=== PATIENT | female | born 1945 | race Caucasian/White ===

== ENCOUNTER → 2016-12-23 | Outpatient (CLI) | payer MEDICARE ==
--- NOTE | 2016-12-24 08:33 | US ---
EXAM DESCRIPTION: Renal ultrasound. CLINICAL HISTORY: Possible renal mass seen on previous exam. COMPARISON: September 22, 2013 TECHNIQUE: Real-time imaging was performed by an industrial engineering technologist. International Coordinator static images have been submitted for review. FINDINGS: The right kidney measures 10.3 cm in diameter in the left measures 10.6. Multiple hypoechoic cysts noted within bilateral kidneys. The largest is seen within the lower pole of right kidney measures 2.7 x 2.7 x 2.3 cm. This cyst has demonstrated slight increase in size. On the prior study measured 2.5 x 2.7 x 1.8 cm. No evidence of obstruction. No definitive evidence of a mass. No renal stones noted. IMPRESSION: Bilateral renal cysts. No solid-appearing renal mass on today's study. Electronically signed by: Jeramie Vazquez MD 12/24/2016 08:31
== END | disposition home or self-care (01) ==
LOC: US 15:10
PROVIDERS: ATTEND Urology
DX: D41.12 Neoplasm of uncertain behavior of left renal pelvis (principal)

== ENCOUNTER → 2017-01-06 | Outpatient (CLI) | payer MEDICARE | LOC: LAB.O 09:34 | PROVIDERS: ATTEND Family Medicine | DX: E11.9 Type 2 diabetes mellitus without complications (principal); I10 Essential (primary) hypertension; E78.00 Pure hypercholesterolemia, unspecified ==

== ENCOUNTER → 2017-04-30 | Outpatient (CLI) | payer MEDICARE | END | disposition home or self-care (01) | LOC: LAB 07:53 | PROVIDERS: ATTEND Family Medicine | DX: E11.9 Type 2 diabetes mellitus without complications (principal); I10 Essential (primary) hypertension ==

== ENCOUNTER → 2017-08-02 | Outpatient (CLI) | payer MEDICARE | END | disposition home or self-care (01) | LOC: LAB.O 07-30 08:14 | PROVIDERS: ATTEND Family Medicine | DX: E11.9 Type 2 diabetes mellitus without complications (principal) ==

== ENCOUNTER → 2017-10-27 | Outpatient (CLI) | payer MEDICARE | END | disposition home or self-care (01) | LOC: LAB.O 09:46 | PROVIDERS: ATTEND Family Medicine | DX: E11.8 Type 2 diabetes mellitus with unspecified complications (principal); I25.10 Atherosclerotic heart disease of native coronary artery without angina pectoris ==

== ENCOUNTER → 2018-04-04 | Outpatient (CLI) | payer MEDICARE | LOC: LAB.O 09:34 | PROVIDERS: ATTEND Family Medicine | DX: I10 Essential (primary) hypertension (principal); E11.8 Type 2 diabetes mellitus with unspecified complications ==

== ENCOUNTER → 2018-08-19 | Outpatient (CLI) | payer MEDICARE | LOC: LAB.O 09:11 | PROVIDERS: ATTEND Family Medicine | DX: Z00.00 Encounter for general adult medical examination without abnormal findings (principal); E11.9 Type 2 diabetes mellitus without complications; I10 Essential (primary) hypertension ==

== ENCOUNTER 2019-03-18 17:21 | Emergency (ER) | payer MEDICARE ==
--- NOTE | 2019-03-18 17:43 | ED.PDOC ---
History of Present Illness - General Chief Complaint: Upper Extremity Injury Stated Complaint: fell, hurt lt wrist Time Seen by Provider: 03/18/19 17:39 Source: patient Exam Limitations: no limitations - History of Present Illness Initial Comments: Danae Barrera 73y/o female came to ER with sharp pain left wrist after a fall at home.Stated both foot got tangled lost her balance on her way to her bathroom.Denies any other injuries elsewhere. Occurred: this morning Pain - Upper Extremity: moderate: Wrist, left Method of Injury: fell Improving Factors: rest Worsening Factors: movement Associated Symptoms: pain Allergies/Adverse Reactions: Allergies NO KNOWN ALLERGY Allergy (Unverified 12/29/13 10:35) Home Medications: Ambulatory Orders ALPRAZolam [Xanax] 0.5 mg PO DAILY 09/02/14 Bisoprolol & Hydrochlorothiazi [Ziac] 1 tab PO DAILY 09/02/14 Clopidogrel Bisulfate [Plavix] 75 mg PO DAILY 09/02/14 Codeine Sulfate 60 mg PO Q6HRS PRN #14 tab 09/02/14 Escitalopram [Lexapro] 10 mg PO DAILY 09/02/14 Fenofibrate 145 mg PO DAILY 09/02/14 Glimepiride [Amaryl] 2 mg PO DAILY 09/02/14 Lisinopril 20 mg PO DAILY 09/02/14 Metformin HCl [Glucophage] 1,000 mg PO BID 09/02/14 Nifedipine [Adalat cc] 60 mg PO DAILY 09/02/14 Tramadol HCl [Ultram] 50 mg PO DAILY 09/02/14 Acetamin W/Cod #3 Tab [Tylenol w/CODEINE #3] 1 ea PO Q4HR PRN #14 tab 03/18/19 Review of Systems - Review of Systems Musculoskeletal: States: see HPI, joint pain - left wrist All other Systems: Reviewed and Negative, No Change from Baseline Past Medical History (General) - Patient Medical History Hx Seizures: No Hx Stroke: No Hx Dementia: No Hx Asthma: No Hx of COPD: No Hx Cardiac Disorders: Yes Hx Congestive Heart Failure: Yes - has stent Hx Pacemaker: No Hx Hypertension: Yes Hx Thyroid Disease: No Hx Diabetes: Yes Hx Gastroesophageal Reflux: No Hx Renal Disease: No Hx Cancer: No Hx of HIV: No Hx Hepatitis C: No Hx MRSA: No Surgical History: other - hysterectomy,cataract,knee,wrist right,c-sections - Social History Hx Tobacco Use: Yes Hx Chewing Tobacco Use: No Hx Alcohol Use: No Hx Substance Use: No Hx Substance Use Treatment: No Hx Depression: No Family Medical History - Family History Mother Living Status: Age at (years of age): 74 Cause of : CHF Hx Family Congestive Heart Failure: Yes Hx Family Hypertension: Yes Hx Cardiac Disease: Yes Hx Family Diabetes: Yes Physical Exam - Physical Exam General Appearance: Alert, Comfortable, No apparent distress Eyes, Ears, Nose, Throat Exam: normal ENT inspection Neck: non-tender, full range of motion, supple, normal inspection Cardiovascular/Respiratory: regular rate, rhythm, no M/R/G, normal peripheral pulses Abdominal Exam: non-tender Back Exam: no CVA tenderness, no vertebral tenderness Shoulder Exam: normal inspection, non-tender, no evidence of injury, normal ROM Elbow/Forearm Exam: normal inspection, non-tender, no evidence of injury, normal ROM Wrist Exam: bone tenderness - left wrist, limited ROM - painful extension/flexion, pain - left wrist, soft tissue tenderness - left wrisr Hand Exam: normal inspection, non-tender, no evidence of injury Neuro/Tendon: normal sensation, normal motor functions, normal tendon functions Mental Status: alert, oriented x 3 Skin Exam: normal color, warm/dry Progress - Progress Progress: 03/18/19 17:47 03/18/19 17:39 Wrist,Left 3 Views [RAD] Stat Vital Signs - 8 hr 03/18/19 17:36 Temperature 98.6 F Pulse Rate [ 76 Right] Respiratory 20 Rate Blood Pressure 162/97 [Right Arm] O2 Sat by Pulse 94 L Oximetry - EKG/XRAY/CT XRAY: forearm - fracture left distal radius Departure - Departure Clinical Impression: Fracture of distal end of left radius Qualifiers: Encounter type: initial encounter Fracture type: closed Fracture morphology: other intra-articular Qualified Code(s): S52.572A - Other intraarticular fracture of lower end of left radius, initial encounter for closed fracture Fall at home Qualifiers: Encounter type: initial encounter Qualified Code(s): W19.XXXA - Unspecified fall, initial encounter; Y92.009 - Unspecified place in unspecified non- institutional (private) residence as the place of occurrence of the external cause Time of Disposition: 18:30 Disposition: Discharge to Home or Self Care Condition: Good Departure Forms: ED Discharge - Pt. Copy, Patient Portal Self Enrollment Instructions: Wrist Fracture (DC) Referrals: ADRIANE BUNCH [Primary Care Provider] - 1-2 Weeks Prescriptions: Acetamin W/Cod #3 Tab [Tylenol w/CODEINE #3] 1 ea PO Q4HR PRN #14 tab PRN Reason: Pain Home Medications: Ambulatory Orders ALPRAZolam [Xanax] 0.5 mg PO DAILY 09/02/14 Bisoprolol & Hydrochlorothiazi [Ziac] 1 tab PO DAILY 09/02/14 Clopidogrel Bisulfate [Plavix] 75 mg PO DAILY 09/02/14 Codeine Sulfate 60 mg PO Q6HRS PRN #14 tab 09/02/14 Escitalopram [Lexapro] 10 mg PO DAILY 09/02/14 Fenofibrate 145 mg PO DAILY 09/02/14 Glimepiride [Amaryl] 2 mg PO DAILY 09/02/14 Lisinopril 20 mg PO DAILY 09/02/14 Metformin HCl [Glucophage] 1,000 mg PO BID 09/02/14 Nifedipine [Adalat cc] 60 mg PO DAILY 09/02/14 Tramadol HCl [Ultram] 50 mg PO DAILY 09/02/14 Acetamin W/Cod #3 Tab [Tylenol w/CODEINE #3] 1 ea PO Q4HR PRN #14 tab 03/18/19 Additional Instructions: Follow up with Dr. Maki-orthopedist 20 Mar 2019 or call primary Md for ortho referral
--- NOTE | 2019-03-18 18:11 | RAD ---
EXAM DESCRIPTION: Wrist,Left 3 Views CLINICAL HISTORY: 73 years ,Female fall/pain swelling COMPARISON: None. TECHNIQUE: Three views of the left wrist. FINDINGS: The bones are osteopenic. There are impacted intra-articular fractures of the distal radius. No other fractures are identified. There are degenerative changes most pronounced at the first carpometacarpal joint. There is soft tissue swelling around the wrist. IMPRESSION: Impacted and intra-articular fractures of the distal radius. Electronically signed by: Chaz Peñaloza MD 03/18/2019 6:08 PM CDT
[2019-03-18] MEDS ORDERED: HYDROcodone 10MG/APAP 325MG 1 EA TAB PO ONE (18:26)
[2019-03-18] MEDS ORDERED: HYDROCOD/APAP 10/325 (ER DISP) # 3 tablets PO ONE (18:26)
[2019-03-18 18:47] VITALS: BP 147/86; TEMP 98.3
[2019-03-18 18:49] VITALS: O2SAT 95
== END 2019-03-18 18:49 | disposition home or self-care (01) ==
LOC: ER 17:21
DX: S52.572A Other intraarticular fracture of lower end of left radius, initial encounter for closed fracture (principal); I51.9 Heart disease, unspecified; I50.9 Heart failure, unspecified; E11.9 Type 2 diabetes mellitus without complications; I10 Essential (primary) hypertension; W18.30XA Fall on same level, unspecified, initial encounter; Y92.009 Unspecified place in unspecified non-institutional (private) residence as the place of occurrence of the external cause; Z95.5 Presence of coronary angioplasty implant and graft; Z87.891 Personal history of nicotine dependence; Z79.899 Other long term (current) drug therapy; Z79.84 Long term (current) use of oral hypoglycemic drugs; Z79.02 Long term (current) use of antithrombotics/antiplatelets

== ENCOUNTER 2019-08-31 15:35 | Observation (INO) | payer MEDICARE ==
[2019-08-31] MEDS ORDERED: SODIUM CHLORIDE 0.9% (FLUSH) 10 ML SYG IV PRN ×2 (15:59→20:58)
--- NOTE | 2019-08-31 17:16 | ED.PDOC ---
History of Present Illness - General Chief Complaint: Diabetic Complaint Stated Complaint: slurred speech and confusion with a low blood sugar. Time Seen by Provider: 08/31/19 15:59 Source: patient, RN notes reviewed, Vital Signs reviewed, EMS notes reviewed, family - daughter and granddaughter - History of Present Illness Initial Comments: patient is a 73-year-old white female who presents with complaints of confusion and slurred speech. On EMS arrival her blood sugar was noted to be 30. She was given an amp of D50 and her blood sugar improved to 93. Patient currently denies any headache, nausea, vomiting, diarrhea, chest pain, shortness of breath, dizziness or blurred vision. Patient is a known diabetic. Patient has never had a hypoglycemic episode before. Per family the patient has been more confused lately. Timing/Duration: 1 hour Severity: severe Improving Factors: other - D50 Worsening Factors: nothing Associated Symptoms: weakness Allergies/Adverse Reactions: Allergies NO KNOWN ALLERGY Allergy (Unverified 12/29/13 10:35) Home Medications: Ambulatory Orders ALPRAZolam [Xanax] 0.5 mg PO DAILY 09/02/14 Bisoprolol & Hydrochlorothiazi [Ziac] 1 tab PO DAILY 09/02/14 Clopidogrel Bisulfate [Plavix] 75 mg PO DAILY 09/02/14 Codeine Sulfate 60 mg PO Q6HRS PRN #14 tab 09/02/14 Escitalopram [Lexapro] 10 mg PO DAILY 09/02/14 Fenofibrate 145 mg PO DAILY 09/02/14 Glimepiride [Amaryl] 2 mg PO DAILY 09/02/14 Lisinopril 20 mg PO DAILY 09/02/14 Metformin HCl [Glucophage] 1,000 mg PO BID 09/02/14 Nifedipine [Adalat cc] 60 mg PO DAILY 09/02/14 Tramadol HCl [Ultram] 50 mg PO DAILY 09/02/14 Acetamin W/Cod #3 Tab [Tylenol w/CODEINE #3] 1 ea PO Q4HR PRN #14 tab 03/18/19 Review of Systems - Review of Systems Constitutional: States: see HPI, malaise, weakness EENTM: States: no symptoms reported Respiratory: States: no symptoms reported Cardiology: States: no symptoms reported Gastrointestinal/Abdominal: States: no symptoms reported Genitourinary: States: no symptoms reported Musculoskeletal: States: no symptoms reported Skin: States: other - patient with diaphoresis with EMS. Neurological: States: paresthesia, weakness, other - slurred speech Endocrine: States: increased thirst Hematologic/Lymphatic: States: no symptoms reported All other Systems: Reviewed and Negative Past Medical History (General) - Patient Medical History Hx Seizures: No Hx Stroke: No Hx Dementia: No Hx Asthma: No Hx of COPD: No Hx Cardiac Disorders: Yes Hx Congestive Heart Failure: Yes - has stent Hx Pacemaker: No Hx Hypertension: Yes Hx Thyroid Disease: No Hx Diabetes: Yes Hx Gastroesophageal Reflux: No Hx Renal Disease: No Hx Cancer: No Hx of HIV: No Hx Hepatitis C: No Hx MRSA: No - Vaccination History Hx Tetanus, Diphtheria Vaccination: No Hx Influenza Vaccination: No Hx Pneumococcal Vaccination: Yes - Social History Hx Tobacco Use: Yes Hx Chewing Tobacco Use: No Hx Alcohol Use: No Hx Substance Use: No Hx Substance Use Treatment: No Hx Depression: No Family Medical History - Family History Mother Living Status: Age at (years of age): 74 Cause of : CHF Hx Family Congestive Heart Failure: Yes Hx Family Hypertension: Yes Hx Cardiac Disease: Yes Hx Family Diabetes: Yes Physical Exam - Physical Exam General Appearance: Alert, Anxious, Well Developed, Well Groomed, Well Hydrated, Well Nourished Eye Exam: bilateral normal - patient with bilateral lens implants. Ears, Nose, Throat: hearing grossly normal, normal ENT inspection, normal pharynx Neck: non-tender, full range of motion, supple, normal inspection Respiratory: chest non-tender, lungs clear, normal breath sounds, no respiratory distress, no accessory muscle use Cardiovascular/Chest: normal peripheral pulses, regular rate, rhythm, no edema, no gallop, no JVD, no murmur, JVD Peripheral Pulses: radial,right: 2+, radial,left: 2+ Gastrointestinal/Abdominal: normal bowel sounds, non tender, soft, no organomegaly, no pulsatile mass Back Exam: normal inspection, no CVA tenderness, no vertebral tenderness Extremity: normal range of motion, non-tender, normal inspection, no pedal edema Neurologic: laundry presser II-XII nml as tested, no motor/sensory deficits, alert, normal mood/affect, oriented x 3 Skin Exam: normal color, warm/dry Lymphatic: no adenopathy Progress - Progress Progress: 08/31/19 20:27 differential diagnosis: Renal failure, urinary tract infection, medication noncompliance among others. Patient with repeated episodes of hypoglycemia here in the department even though she has eaten and had D10. Due to the fact that she is on glipizide, long acting medication, we will need to admit the patient for D10 drip and further evaluation. I discussed this plan of care with the patient and her family and they voiced understanding and agreement. I did speak with Niyah Hubbard NP, and she has agreed to admit the patient to the hospital. Chaz Salter M.D. #[id number] - Results/Orders Results/Orders: 08/31/19 15:59 Sodium Chloride 0.9% (Flush) [Saline Flush Syringe] 10 ml IV PRN PRN 08/31/19 16:00 IV Care:Saline Lock per Protoc QSHIFT 08/31/19 17:44 Dextrose 10% 500Ml [D10W 500ml] 500 ml IVS .QD Laboratory Results - last 24 hr 08/31/19 08/31/19 08/31/19 15:30 15:30 16:35 WBC 8.6 RBC 3.72 L Hgb 8.5 L Hct 27.0 L MCV 72.5 L MCH 23.0 L MCHC 31.7 L RDW 17.8 H Plt Count 226 MPV 7.7 Absolute Neuts (auto) 7.20 H Absolute Lymphs (auto) 0.90 L Absolute Monos (auto) 0.40 Absolute Eos (auto) 0.00 Absolute Basos (auto) 0.10 Neutrophils % 83.7 H Lymphocytes % 10.7 L Monocytes % 4.6 Eosinophils % 0.3 L Basophils % 0.7 Normal RBC Morphology Stain quality accept Sodium 132 L Potassium 4.8 Chloride 96 L Carbon Dioxide 19 L Anion Gap 21.8 H BUN 29 H Creatinine 1.56 H BUN/Creatinine Ratio 18.6 POC Glucose Random Glucose 29 L* Serum Osmolality 266.5 L Calcium 9.5 Total Bilirubin 0.5 Direct Bilirubin 0.1 Indirect Bilirubin 0.4 AST 22 ALT 13 Alkaline Phosphatase 68 Serum Total Protein 7.8 Albumin 3.8 Lipase 22 Urine Color Yellow Urine Appearance Sl cloudy Urine pH 5.0 Ur Specific [place] 1.010 Urine Protein 30 Urine Glucose (UA) Negative Urine Ketones Negative Urine Blood Negative Urine Nitrite Positive H Urine Bilirubin Negative Urine Urobilinogen 0.2 Ur Leukocyte Esterase Negative Urine RBC 0 Urine WBC 0 Ur Epithelial Cells 0-1 Urine Bacteria 4+ H Urine Opiates Screen Urine Barbiturates Ur Phencyclidine Scrn U Amphetamin/Meth Scrn U Benzodiazepines Scrn U Cocaine Metab Screen U Cannabinoids Screen 08/31/19 08/31/19 08/31/19 16:35 16:43 17:37 WBC RBC Hgb Hct MCV MCH MCHC RDW Plt Count MPV Absolute Neuts (auto) Absolute Lymphs (auto) Absolute Monos (auto) Absolute Eos (auto) Absolute Basos (auto) Neutrophils % Lymphocytes % Monocytes % Eosinophils % Basophils % Normal RBC Morphology Sodium Potassium Chloride Carbon Dioxide Anion Gap BUN Creatinine BUN/Creatinine Ratio POC Glucose 86 43 L Random Glucose Serum Osmolality Calcium Total Bilirubin Direct Bilirubin Indirect Bilirubin AST ALT Alkaline Phosphatase Serum Total Protein Albumin Lipase Urine Color Urine Appearance Urine pH Ur Specific [place] Urine Protein Urine Glucose (UA) Urine Ketones Urine Blood Urine Nitrite Urine Bilirubin Urine Urobilinogen Ur Leukocyte Esterase Urine RBC Urine WBC Ur Epithelial Cells Urine Bacteria Urine Opiates Screen Negative Urine Barbiturates Negative Ur Phencyclidine Scrn Negative U Amphetamin/Meth Scrn Negative U Benzodiazepines Scrn Negative U Cocaine Metab Screen Negative U Cannabinoids Screen Negative Departure - Departure Clinical Impression: Hypoglycemia associated with type 2 diabetes mellitus Adverse reaction to drug Qualifiers: Encounter type: initial encounter Qualified Code(s): T50.905A - Adverse effect of unspecified drugs, medicaments and biological substances, initial encounter Disposition: Admit Patient Condition: Fair Home Medications: Ambulatory Orders ALPRAZolam [Xanax] 0.5 mg PO DAILY 09/02/14 Bisoprolol & Hydrochlorothiazi [Ziac] 1 tab PO DAILY 09/02/14 Clopidogrel Bisulfate [Plavix] 75 mg PO DAILY 09/02/14 Codeine Sulfate 60 mg PO Q6HRS PRN #14 tab 09/02/14 Escitalopram [Lexapro] 10 mg PO DAILY 09/02/14 Fenofibrate 145 mg PO DAILY 09/02/14 Glimepiride [Amaryl] 2 mg PO DAILY 09/02/14 Lisinopril 20 mg PO DAILY 09/02/14 Metformin HCl [Glucophage] 1,000 mg PO BID 09/02/14 Nifedipine [Adalat cc] 60 mg PO DAILY 09/02/14 Tramadol HCl [Ultram] 50 mg PO DAILY 09/02/14 Acetamin W/Cod #3 Tab [Tylenol w/CODEINE #3] 1 ea PO Q4HR PRN #14 tab 03/18/19 Decision To Admit - Decistion To Admit Decision to Admit Reason: Admit from ER Decision to Admit Date: 08/31/19 Decision to Admit Time: 18:00
[2019-08-31] MEDS ORDERED: DEXTROSE 50% 25 GM/50 ML SYG IV ONE (17:37)
[2019-08-31] MEDS ORDERED: DEXTROSE 10% 500ML 500 ML ONE (17:40)
[2019-08-31] MEDS ORDERED: DEXTROSE 10% 500ML 500 ML IVS PRN (17:44)
--- NOTE | 2019-08-31 19:15 | HP ---
SUPERVISING PHYSICIAN: Pb Aguiar MD CHIEF COMPLAINT: Low blood sugar. HISTORY OF PRESENT ILLNESS: This is a 73 year-old female patient who was sent to the Emergency Room with altered mental status, slurred speech. Originally, her daughter had called EMS due to stroke-like symptoms. When EMS arrived at the scene, her blood sugar was noted to be 30. She was given an amp of D5, her blood sugar improved to 98. Once she got to the Emergency Room, her blood sugar dropped to 29. She was given an additional D50 and it came up to 86, then dropped to 43. She was put on a drip of D10. Her confusion lessened in the Emergency Room after administration of the dextrose. Her vital signs on admission to the Emergency Room were temperature of 97, heart rate 117, blood pressure 137/80, respiratory rate 18, oxygen saturation 94% on room air. Lab was done, her sodium was 132, potassium 4.8, chloride 96, carbon dioxide 19, BUN 29, creatinine 1.56. Liver enzymes were within normal limits. WBC 8.6, hemoglobin 8.5, hematocrit 27, platelet count 226,000. She had a left shift on her differential. Urinalysis was nitrite positive. Her urine drug screen was negative. Blood sugars continued to go up and down and I was called for hospital admission. PAST MEDICAL HISTORY: 1. Hypertension. 2. Congestive heart failure of unknown etiology. No current echocardiogram to review. 3. Diabetes mellitus type 2. 4. Arthritis. 5. Depression and anxiety. 6. Hyperlipidemia. PAST SURGICAL HISTORY: 1. x3. 2. Hysterectomy. 3. Cholecystectomy. 4. Open reduction and internal fixation of bilateral ankles. 5. Open reduction and internal fixation of right breast. 6. Bilateral total knee arthroplasty. CURRENT MEDICATIONS: Per the EMR and awaiting verification.. ALLERGIES: No known drug allergies. FAMILY HISTORY: Positive for congestive heart failure, hypertension, cardiac disease and diabetes. SOCIAL HISTORY: She sees Dr. Liang in [place]. She smokes about one pack of cigarettes daily and has for approximately 40 years. She denies any ETOH or illicit drug use. She lives in [place]. REVIEW OF SYSTEMS: GENERAL: Positive for malaise, weakness, negative for weight changes. HEENT: Negative for sinus symptoms, ear pain, vision changes, sore throat. RESPIRATORY: Negative for coughing, wheezing, shortness of breath CARDIAC: Negative for chest pain, palpitations, tachycardia. GI: Neuroforaminal for nausea, vomiting or diarrhea or constipation. GENITOURINARY: Negative for hematuria, dysuria, polyuria. MUSCULOSKELETAL: Negative for arthritis or myalgias. SKIN: Negative for lesions or rashes. NEUROLOGICAL: Positive for mental status changes as well as dizziness and weakness with slurred speech. Negative for headaches or seizures. PHYSICAL EXAMINATION: VITAL SIGNS: Temperature 97.8, heart rate 72, blood pressure 140/72, respiratory rate 18, oxygen saturation 95% on room air. GENERAL: This is a 73 year-old female patient lying in her hospital bed. She is in no acute distress. HEENT: Normocephalic and atraumatic. Pupils are equal and reactive. Oropharynx is clear. NECK: Supple without mass. CHEST: Essentially clear to auscultation bilaterally. Chest has equal rise and fall of the chest on inspiration and expiration. CARDIOVASCULAR: Regular rate and rhythm. ABDOMEN: Soft, nondistended, non-tender. Bowel sounds are positive. EXTREMITIES: No cyanosis, clubbing, or edema. Bilateral pedal pulses are palpable +2. NEUROLOGIC: She is awake and alert. Cranial nerves II through XII are grossly intact. LABORATORY/RADIOLOGY: As per the history of present illness. ASSESSMENT: 1. Altered mental status with aphasia most likely secondary to low blood sugars. 2. Hypoglycemia most likely secondary to glipizide administration. 3. Diabetes mellitus type 2 on metformin and glipizide. 4. Congestive heart failure of unknown etiology. No current echocardiogram to review. 5. Hypertension on a beta rosaline and ARB as well as Hydrochlorothiazide. 6. Hyperlipidemia on statins. 7. Coronary artery disease with cardiac stent, followed by Dr. Wyman. 8. Chronic renal insufficiency. 9. Mild urinary tract infection. PLAN: We will place the patient in observation, monitor her neurological status every 4 hours. She will have every 2 hour blood sugar checks through the night. I have discontinued her D10 from the Emergency Room and she is now on D5 normal. Will recheck her labs in the morning. Her home medications will be continued as soon as they are verified, although I will not restart her metformin until tomorrow morning and most likely will discontinue her glipizide. She can followup with Dr. Liang as to whether he wants that restarted or not. We did extensive diabetic teaching that included hypoglycemia and will get an echocardiogram in the morning as well as start her on Rocephin for her urinary tract infection and do a urine culture. Hopefully, she can be discharged in the morning with close followup with Dr. Liang and will continue to monitor closely and follow as needed. [facility][id number] [facility]
[2019-08-31] MEDS ORDERED: ONDANSETRON INJ 4 MG/2 ML VIAL IV PRN (20:58)
[2019-08-31] MEDS ORDERED: IV SET AND CAP CHANGE INJ INJ SCH (21:00)
[2019-08-31] MEDS ORDERED: DEX 5% W/NACL 0.9% 1000ML 1,000 ML IVS PRN (21:39)
[2019-08-31] MEDS: SODIUM CHLORIDE 0.9% (FLUSH) 10 ML SYG IV SCH (22:55)
[2019-09-01] MEDS ORDERED: cefTRIAXone SODIUM 1 GM VIAL ONE ×2 (00:14→19:20)
[2019-09-01] MEDS ORDERED: SODIUM CHL 0.9% 50ML MIN-BAG+ 50 ML IVPB ONE ×2 (00:14→19:19)
[2019-09-01] MEDS: cefTRIAXone SODIUM 1 GM in SODIUM CHL 0.9% 50ML MIN-BAG+ 50 ML IVPB SCH ×2 (00:15→23:16)
[2019-09-01] MEDS ORDERED: DEXTROSE 10% 1000ML 1,000 ML IVS PRN (01:24)
[2019-09-01] MEDS: PANTOPRAZOLE SODIUM IV 40 MG VIAL IV SCH (05:57)
[2019-09-01] MEDS ORDERED: FUROSEMIDE INJ 40 MG/4 ML VIAL IV ONE (06:20)
[2019-09-01] MEDS ORDERED: ACETAMINOPHEN 325 MG TAB PO ONE (06:20)
[2019-09-01] MEDS ORDERED: diphenhydrAMINE HCL 50 MG/ML VIAL IV ONE (06:20)
[2019-09-01] MEDS ORDERED: SODIUM CHLORIDE 0.9% 500ML 500 ML IVS SCH (06:30)
[2019-09-01] MEDS ORDERED: cloNIDine HCL 0.1 MG TAB ONE (08:17)
[2019-09-01] MEDS ORDERED: ATORVASTATIN 20 MG TAB PO ONE (08:17)
[2019-09-01] MEDS ORDERED: DEX 5% W/NACL 0.9% 1000ML 1,000 ML IVS PRN (09:11)
[2019-09-01] MEDS: ASPIRIN (ENTERIC COATED) 81 MG TAB PO SCH (09:32)
[2019-09-01] MEDS: ATORVASTATIN 20 MG TAB PO SCH (09:32)
[2019-09-01] MEDS: cloNIDine HCL 0.1 MG TAB PO SCH ×3 (09:32→21:00)
[2019-09-01] MEDS: CLOPIDOGREL 75 MG TAB PO SCH (09:32)
[2019-09-01] MEDS: ESCITALOPRAM 10 MG TAB PO SCH (09:32)
[2019-09-01] MEDS: SODIUM CHLORIDE 0.9% (FLUSH) 10 ML SYG IV SCH ×2 (09:33→21:04)
[2019-09-01] MEDS: NEBIVOLOL 2.5 MG TAB PO SCH ×2 (09:33→10:11)
[2019-09-01] MEDS: VALSARTAN 80 MG TAB PO SCH ×2 (09:34→10:10)
[2019-09-01] MEDS: hydroCHLOROthiazide 25 MG TAB PO SCH (10:10)
[2019-09-01] MEDS ORDERED: NON-FORMULARY MEDICATION 1 EA MIS PO SCH (10:15)
[2019-09-01] MEDS: BYSTOLIC 20 MG PO SCH ×2 (10:18→21:02)
--- NOTE | 2019-09-01 20:34 | PN ---
DATE: 09/01/19 SUPERVISING PHYSICIAN: Pb Aguiar M.D. SUBJECTIVE: The patient is sitting up in bed. She is feeling better than yesterday, although she is still quite weak. Blood sugars have continued to go up and down throughout the last 12 hours. She has switched between Dextrose 10% and Dextrose 5% IV solution to keep her blood sugars up. She denies any shortness of breath or chest pain. OBJECTIVE: VITAL SIGNS: Temperature 98.6, heart rate 87, blood pressure 144/80, respiratory rate 16, O2 sat 93% on room air. RESPIRATORY: Essentially clear to auscultation bilaterally. CARDIAC: Regular rate and rhythm. GASTROINTESTINAL: Abdomen is soft, nondistended, non-tender. Bowel sounds are positive. NEUROLOGIC: She is awake, alert and oriented times three. LABORATORY: WBCs are 5.5 with hemoglobin 7.3, hematocrit 23.1. Differential is within normal limits. Blood sugars have run between 43 at 1:00 AM and as high as 147. Sodium 132, potassium 4.6, chloride 98, carbon dioxide 20, BUN 26, creatinine 1.48, glucose 112. Urine culture is pending. All other labs and films have been reviewed via the EMR. ASSESSMENT: 1. Hypoglycemia most likely secondary to sulfonylurea administration. 2. Anemia, microcytic/hypochromic most likely secondary to renal disease. 3. Altered mental status with aphasia that is improved, most likely secondary to low blood sugars. 4. Diabetes mellitus type 2 on metformin and a sulfonylurea. 5. Congestive heart failure of unknown etiology awaiting echocardiogram results. 6. Hypertension on a beta rosaline and ARB as well as Hydrochlorothiazide. 7. Hyperlipidemia on statins. 8. Chronic renal insufficiency. 9. Coronary artery disease with cardiac stent followed by Dr. Wyman. 10. Mild urinary tract infection. PLAN: We will continue present supportive care. She is getting 2 units of packed red blood. She will need to see a wafer mounter after discharge. She will also need and anemia workup in a few weeks. Her echocardiogram will need to be sent to Dr. Wyman. She is continuing to get every 2 hour blood sugars until those have stabilized. Her sulfonylurea has been discontinued from her home medication list due to her renal insufficiency as well as her hypoglycemic event. It is recommended that that not be restarted. Her home medications, with the exception of her Amaryl, has been restarted. Her admission has been changed to a full admission. Will continue to monitor closely and follow as needed. [facility][id number] [facility]
[2019-09-02] MEDS: PANTOPRAZOLE SODIUM IV 40 MG VIAL IV SCH (06:06)
[2019-09-02] MEDS: cloNIDine HCL 0.1 MG TAB PO SCH ×3 (09:19→20:29)
[2019-09-02] MEDS: ASPIRIN (ENTERIC COATED) 81 MG TAB PO SCH (09:19)
[2019-09-02] MEDS: CLOPIDOGREL 75 MG TAB PO SCH (09:19)
[2019-09-02] MEDS: VALSARTAN 80 MG TAB PO SCH (09:19)
[2019-09-02] MEDS: ESCITALOPRAM 10 MG TAB PO SCH (09:20)
[2019-09-02] MEDS: hydroCHLOROthiazide 25 MG TAB PO SCH (09:20)
[2019-09-02] MEDS: ATORVASTATIN 20 MG TAB PO SCH (09:20)
[2019-09-02] MEDS ORDERED: MAGNESIUM SULFATE PREMIX 2GM 2 GM in PREMIX BAG 1 BAG IVPB ONE (09:38)
[2019-09-02] MEDS: SODIUM CHLORIDE 0.9% (FLUSH) 10 ML SYG IV SCH ×2 (10:00→21:15)
[2019-09-02] MEDS ORDERED: GLUCAGON INJ 1 MG VIAL SUBCU PRN (10:44)
[2019-09-02] MEDS ORDERED: DEXTROSE 50% 25 GM/50 ML SYG IV PRN (10:44)
[2019-09-02] MEDS ORDERED: MAGNESIUM SULFATE PREMIX 2GM 50 ML IVPB ONE (10:49)
[2019-09-02] MEDS: BYSTOLIC 20 MG PO SCH ×2 (12:00→20:30)
[2019-09-02] MEDS: INSULIN LISPRO 100 UNITS/ML PEN SUBCU SCH ×3 (12:04→21:14)
[2019-09-02] MEDS ORDERED: SODIUM CHL 0.9% 50ML MIN-BAG+ 50 ML IVPB ONE (19:47)
[2019-09-02] MEDS ORDERED: cefTRIAXone SODIUM 1 GM VIAL ONE (19:47)
--- NOTE | 2019-09-02 23:02 | PN ---
DATE: 09/02/19 SUPERVISING PHYSICIAN: Pb Aguiar M.D. SUBJECTIVE: The patient is doing well after infusion of 2 units. Blood sugars have started to stabilize although now they are in the 200s. She is able to tolerate a diet. She has been tolerating antibiotic therapy. OBJECTIVE: VITAL SIGNS: Temperature 98.4, pulse 70, blood pressure 136/63, respirations 20, satting 98% on room air. GENERAL: The patient is resting comfortably. She appears to be without any distress. She is just eating lunch. CHEST: Lung sounds were clear. HEART: Regular rate and rhythm. ABDOMEN: Soft, non-tender. Positive bowel sounds. EXTREMITIES: Without any edema. NEUROLOGIC: She is alert and oriented times three. LABORATORY: H&H this morning was 9.4. RBC indices before transfusion showed a microcytic hypochromic presentation. Platelet count is 168,000. Differential does show a left shift. Chemistries show normal electrolytes except for just a mildly low chloride at 100. Anion gap is showing some elevation at 18.1 with BUN 25, creatinine 1.66. Blood sugars range between 179 and 229 with liver functions showing to be within normal limits. She had a magnesium that was low at 1.6. MICROBIOLOGY: Urine culture was pending. RADIOLOGY: No radiographic studies since admission. ASSESSMENT: 1. Hypoglycemia most likely secondary to sulfonylurea administration now showing stable with some hyperglycemia. 2. Anemia, microcytic/hypochromic presentation probably in combination of chronic illness due to renal disease and underlying possible iron-deficiency anemia. 3. Altered mental status with some aphasia on admission, improved since correction of blood sugars with no residual effects noted. 4. Diabetes mellitus type 2 on metformin and previously on sulfonylurea resulting in hypoglycemic event. 5. Congestive heart failure without current echocardiogram for review. 6. Hypertension on a beta rosaline and ARB as well as Hydrochlorothiazide. 7. Hyperlipidemia on statins. 8. Chronic renal insufficiency. 9. Coronary artery disease with cardiac stent followed by Dr. Wyman. 10. Mild urinary tract infection with cultures pending. PLAN: Will continue to monitor the patient closely. She does remain on antibiotic coverage for the urinary tract infection with Rocephin. Will plan to repeat labs in the morning. If her H&H stays stable and her kidney function is improving, will hopefully be able to discharge to continue with outpatient management. I would anticipate we will not have a culture back on her urine at least until Wednesday or Wednesday, but we should be able to discharge on basic coverage. Until then will continue to monitor and treat as needed. #[id number] [facility]
[2019-09-02] MEDS: cefTRIAXone SODIUM 1 GM in SODIUM CHL 0.9% 50ML MIN-BAG+ 50 ML IVPB SCH (23:45)
[2019-09-03] MEDS: PANTOPRAZOLE SODIUM IV 40 MG VIAL IV SCH (05:54)
[2019-09-03] MEDS: INSULIN LISPRO 100 UNITS/ML PEN SUBCU SCH (07:58)
[2019-09-03] MEDS: hydroCHLOROthiazide 25 MG TAB PO SCH (08:58)
[2019-09-03] MEDS: VALSARTAN 80 MG TAB PO SCH (08:58)
[2019-09-03] MEDS: cloNIDine HCL 0.1 MG TAB PO SCH (08:59)
[2019-09-03] MEDS: ESCITALOPRAM 10 MG TAB PO SCH (08:59)
[2019-09-03] MEDS: ATORVASTATIN 20 MG TAB PO SCH (08:59)
[2019-09-03] MEDS: BYSTOLIC 20 MG PO SCH (08:59)
[2019-09-03] MEDS: CLOPIDOGREL 75 MG TAB PO SCH (08:59)
[2019-09-03] MEDS: ASPIRIN (ENTERIC COATED) 81 MG TAB PO SCH (09:03)
[2019-09-03] MEDS ORDERED: cefTRIAXone SODIUM 1 GM in SODIUM CHL 0.9% 50ML MIN-BAG+ 50 ML IVPB ONE (09:54)
[2019-09-03 10:33] VITALS: BP 157/67; TEMP 98.5; O2SAT 93
[2019-09-03] MEDS ORDERED: SODIUM CHL 0.9% 50ML MIN-BAG+ 50 ML IVPB ONE (10:51)
[2019-09-03] MEDS ORDERED: cefTRIAXone SODIUM 1 GM VIAL ONE (10:52)
[2019-09-03] MEDS: SODIUM CHLORIDE 0.9% (FLUSH) 10 ML SYG IV SCH (10:59)
--- NOTE | 2019-09-07 10:51 | DS ---
SUPERVISING PHYSICIAN: Pb Aguiar MD ADMISSION DIAGNOSIS: 1. Altered mental status with aphasia most likely secondary to low blood sugars. 2. Hypoglycemia most likely secondary to glipizide administration. 3. Diabetes mellitus type 2 on metformin and glipizide. 4. Congestive heart failure of unknown etiology. No current echocardiogram to review. 5. Hypertension on a beta rosaline and ARB as well as hydrochlorothiazide. 6. Hyperlipidemia on statins. 7. Coronary artery disease with cardiac stent, followed by Dr. Wyman. 8. Chronic renal insufficiency. 9. Mild urinary tract infection. DISCHARGE DIAGNOSIS: 1. Hypoglycemia most likely secondary to sulfonylurea administration, now stable with some hyperglycemia. 2. Anemia, microcytic/hypochromic presentation probably in combination of chronic illness due to renal disease and underlying possible iron-deficiency anemia. 3. Altered mental status with some aphasia on admission, improved since correction of blood sugars with no residual effects noted. 4. Diabetes mellitus type 2 on metformin and previously on sulfonylurea resulting in hypoglycemic event. 5. Congestive heart failure without current echocardiogram for review. 6. Hypertension on a beta rosaline and ARB as well as hydrochlorothiazide. 7. Hyperlipidemia on statins. 8. Chronic renal insufficiency. 9. Coronary artery disease with cardiac stent, followed by Dr. Wyman. 10. Mild urinary tract infection with cultures pending. REASON FOR HOSPITALIZATION: This is a 73 year-old female patient who was sent to the Emergency Room with altered mental status, slurred speech. Originally, her daughter had called EMS due to stroke-like symptoms. When EMS arrived at the scene, her blood sugar was noted to be 30. She was given an amp of D5, her blood sugar improved to 98. Once she got to the Emergency Room, her blood sugar dropped to 29. She was given an additional D50 and it came up to 86, then dropped to 43. She was put on a drip of D10. Her confusion lessened in the Emergency Room after administration of the dextrose. Her vital signs on admission to the Emergency Room were temperature of 97, heart rate 117, blood pressure 137/80, respiratory rate 18, oxygen saturation 94% on room air. Lab was done, her sodium was 132, potassium 4.8, chloride 96, carbon dioxide 19, BUN 29, creatinine 1.56. Liver enzymes were within normal limits. WBC 8.6, hemoglobin 8.5, hematocrit 27, platelet count 226,000. She had a left shift on her differential. Urinalysis was nitrite positive. Her urine drug screen was negative. Blood sugars continued to go up and down. LABORATORY: White count on admission was 8,600 and at discharge was 6,200. Hemoglobin initially was 8.5 and went down to 7.3 after 2 units transfusion. Prior to discharge, it was at 9.5 with hematocrit 29.9. RBC indices did indicate a microcytic/hypochromic anemia and differential did show a slight left shift. Chemistries on admission showed sodium 132, normal potassium at 4.8. Glucose was 29 initially on admission. It stabilized prior to discharge and was ranging between 147 and 272. Her last set of electrolytes prior to discharge showed creatinine down to 1.31 with BUN 22. Anion gap and carbon dioxide had normalized. Liver functions were within normal limits. Blood sugars were ranging between 147 and 222. Calcium 9.2. She did need replacement for her magnesium and was at 1.6. Urinalysis showed 4+ bacteria with positive nitrites. Toxicology screen was negative. MICROBIOLOGY: Final reports on urine culture showed Group A Strep. Screen was negative with no beta hemolytic strep isolated. Urine culture was never sent out although the patient was asymptomatic. HOSPITAL COURSE: Ms. Barrera was admitted for hypoglycemia. She initially was started on D5 and then D10. As her glucoses stabilized, she was transitioned to normal saline. She was placed on antibiotics during her entire hospitalization for possible underlying urinary tract infection although she was asymptomatic. Vital signs remained stable. After assessment and review of labs, it was felt the patient was stable enough to continue with outpatient management. Therefore, she was discharged home. DISCHARGE PHYSICAL EXAMINATION: VITAL SIGNS: On discharge, vital signs showed temperature 98.5, pulse 63, blood pressure 157/67, respirations 18, saturation 93%. GENERAL: The patient was alert and oriented times 3. CHEST: Clear to auscultation. HEART: Regular rate and rhythm. ABDOMEN: Soft, nontender, positive bowel sounds. EXTREMITIES: No edema. NEUROLOGIC: Alert and oriented times 3. PLAN: Ms. Barrera was discharged home on 09/03/19 with instructions to followup with Dr. Liang the following week. She was to hold her Amaryl, but continue to take metformin. She was encouraged to check her blood sugars at least 3 times a day to ensure that she was not having any more low blood sugars. She was to keep a log of those blood sugars and take them with her to her appointment with Dr. Liang. She was to return to the hospital for any concerning symptoms. Diet on discharge was diabetic diet as tolerated. Activities as tolerated. No new medications were started on discharge. CONDITION ON DISCHARGE: Stable and improved. DISPOSITION: The patient is discharged home in stable condition. #[id number] [facility]
== END 2019-09-03 11:45 | disposition home or self-care (01) ==
LOC: ER 15:35 → MS 19:14
PROVIDERS: ADMIT Nurse Practitioner Acute Care; ATTEND Nurse Practitioner Family
DX: E11.649 Type 2 diabetes mellitus with hypoglycemia without coma (principal); T38.3X5A Adverse effect of insulin and oral hypoglycemic [antidiabetic] drugs, initial encounter; D50.9 Iron deficiency anemia, unspecified; R41.82 Altered mental status, unspecified; R47.01 Aphasia; N39.0 Urinary tract infection, site not specified; B96.89 Other specified bacterial agents as the cause of diseases classified elsewhere; E83.42 Hypomagnesemia; I25.10 Atherosclerotic heart disease of native coronary artery without angina pectoris; I13.0 Hypertensive heart and chronic kidney disease with heart failure and stage 1 through stage 4 chronic kidney disease, or unspecified chronic kidney disease; I50.9 Heart failure, unspecified; E11.22 Type 2 diabetes mellitus with diabetic chronic kidney disease; N18.9 Chronic kidney disease, unspecified; D63.1 Anemia in chronic kidney disease; E78.5 Hyperlipidemia, unspecified; F32.9 Major depressive disorder, single episode, unspecified; F41.9 Anxiety disorder, unspecified; M19.90 Unspecified osteoarthritis, unspecified site; F17.210 Nicotine dependence, cigarettes, uncomplicated; Z79.84 Long term (current) use of oral hypoglycemic drugs; Z79.02 Long term (current) use of antithrombotics/antiplatelets; Z79.891 Long term (current) use of opiate analgesic; Z79.899 Other long term (current) drug therapy; Z95.5 Presence of coronary angioplasty implant and graft; Z96.653 Presence of artificial knee joint, bilateral; Z90.710 Acquired absence of both cervix and uterus; Z90.49 Acquired absence of other specified parts of digestive tract; Z82.49 Family history of ischemic heart disease and other diseases of the circulatory system; Z83.3 Family history of diabetes mellitus
CPT/HCPCS: 96361; 96366; 96367; 96365; 96375; 96376; 96372; J0696 ×4; J7799 ×4; J1200; J1940; J7040; J3475; J1815; J7050 ×4; 80048 ×2; 80053 ×2; 87086; 80307; 82948 ×28; 83036; 36415 ×2; 87077; 87186; 81001; 80076; 85025 ×4; 83690; 83735; 36416 ×15; 86922; 86900; 86901; 86850; 36430; 94760 ×4; 99285; 93306

== ENCOUNTER → 2020-04-25 | Outpatient (CLI) | payer MEDICARE | LOC: LAB.O 10:33 | PROVIDERS: ATTEND Family Medicine | DX: E11.9 Type 2 diabetes mellitus without complications (principal) ==

== ENCOUNTER 2020-05-14 12:13 | Emergency (ER) | payer MEDICARE ==
--- NOTE | 2020-05-14 12:34 | ED.PDOC ---
History of Present Illness - General Chief Complaint: Neuro Symptoms/Deficits Stated Complaint: Altered Mental Status Time Seen by Provider: 05/14/20 12:29 Source: patient Exam Limitations: no limitations - History of Present Illness Initial Comments: EMS reports daughter wanted her to come to ER to be evaluated. Pt reportedly fatigued and seeing people that aren't there. Pt actually has no complaints at this time. No RAMIRES, CP, abd pain. She has no cough/SOB, F/C, N/V/D. Pt admits to having right lower leg cellulitis, and is fairly sure she's still on Bactrim for it. She can't recall exactly when she started the abx. Pt reportedly disoriented to year en route. Pt also had HR in upper 40's/low 50's en route, but pt says that is fairly normal for her. Timing/Duration: unsure Severity: mild Improving Factors: nothing Worsening Factors: nothing Associated Symptoms: denies symptoms Allergies/Adverse Reactions: Allergies NO KNOWN ALLERGY Allergy (Unverified 05/14/20 12:26) Home Medications: Ambulatory Orders Clopidogrel Bisulfate [Plavix] 75 mg PO DAILY 09/02/14 Escitalopram [Lexapro] 10 mg PO DAILY 09/02/14 Metformin HCl [Glucophage] 1,000 mg PO BID 09/02/14 Aspirin [Aspirin Adult Low Dose] 81 mg PO DAILY 08/31/19 Atorvastatin Calcium [Lipitor] 40 mg PO DAILY 08/31/19 Clonidine HCl [Clonidine Hydrochloride] 0.2 mg PO TID 08/31/19 Nebivolol HCl [Bystolic] 20 mg PO BID 08/31/19 Valsartan-Hydrochlorothiazide [Valsartan/Hydrochlorothia 320-25 mg] 1 tablet PO DAILY 08/31/19 Bumetanide 2 mg PO DAILY 05/14/20 Ferrous Sulfate [Ferosul] 325 mg PO DAILY 05/14/20 Sulfamethoxazole-Trimethoprim [Bactrim Ds 800-160 mg] 1 tab PO BID 05/14/20 Review of Systems - Review of Systems Constitutional: States: no symptoms reported, see HPI, weakness. Denies: chills, diaphoresis, fever EENTM: States: no symptoms reported Respiratory: States: no symptoms reported Cardiology: States: no symptoms reported Gastrointestinal/Abdominal: States: no symptoms reported Musculoskeletal: States: no symptoms reported Skin: States: no symptoms reported Neurological: States: no symptoms reported Endocrine: States: no symptoms reported Hematologic/Lymphatic: States: no symptoms reported Past Medical History (General) - Patient Medical History Hx Seizures: No Hx Stroke: No Hx Dementia: No Hx Asthma: No Hx of COPD: No Hx Cardiac Disorders: Yes Hx Congestive Heart Failure: Yes - has stent Hx Pacemaker: No Hx Hypertension: Yes Hx Thyroid Disease: No Hx Diabetes: Yes Hx Gastroesophageal Reflux: No Hx Renal Disease: No Hx Cancer: No Hx of HIV: No Hx Hepatitis C: No Hx MRSA: No - Vaccination History Hx Tetanus, Diphtheria Vaccination: No Hx Influenza Vaccination: No Hx Pneumococcal Vaccination: Yes - Social History Hx Tobacco Use: Yes Hx Chewing Tobacco Use: No Hx Alcohol Use: No Hx Substance Use: No Hx Substance Use Treatment: No Hx Depression: No Hx Physical Abuse: No Hx Emotional Abuse: No Family Medical History - Family History Mother Living Status: Age at (years of age): 74 Cause of : CHF Hx Family Congestive Heart Failure: Yes Hx Family Hypertension: Yes Hx Cardiac Disease: Yes Hx Family Diabetes: Yes Physical Exam - Physical Exam General Appearance: Alert, Comfortable, No apparent distress Eye Exam: bilateral normal Ears, Nose, Throat: hearing grossly normal, normal ENT inspection, normal pha rynx Neck: non-tender, full range of motion, supple, normal inspection Respiratory: chest non-tender, lungs clear, normal breath sounds, no respiratory distress, no accessory muscle use Cardiovascular/Chest: normal peripheral pulses, no edema, no gallop, no JVD, no murmur, bradycardia - regular Gastrointestinal/Abdominal: normal bowel sounds, non tender, soft, no organomegaly, no pulsatile mass Extremity: other - Erythema, edema, warmth and dry skin to right leg, from ankle to below knee. Neurologic: no motor/sensory deficits, alert, normal mood/affect, other - Disoriented to day of week, but oriented to person, place and year. Skin Exam: warm/dry Lymphatic: no adenopathy Progress - Progress Progress: 05/14/20 13:01 EKG Sinus luciano 46, regular. No acute ST changes. No obvious Q waves. Nonspecific ST changes. 05/14/20 13:16 Family brought Bactrim. Pt started on Bactrim DS BID x 7 days starting 05/09. 05/14/20 13:54 Spoke to daughter. She says pt has had increased generalized swelling. 05/14/20 14:39 Lactate>5 noted. Kidney failure likely component, but sepsis a consideration. BCx and abx ordered. Rt leg cellulitis only obvious potential source at this time. Pt clearly with acute on CKD, fluid overload. Since we do not have nephrology at this facility, will transfer to [facility] ER Physician accepted transfer. Departure - Departure Clinical Impression: Fatigue, Acute on chronic renal failure, Lactic acidosis, Fluid overload, Acute on chronic anemia, Cellulitis of right leg, Sinus bradycardia, AMS (altered mental status) Disposition: Transfer to Hospital Condition: Fair Departure Forms: ED Discharge - Pt. Copy, Patient Portal Self Enrollment Referrals: ADRIANE BUNCH [Primary Care Provider] - 1-2 Weeks Home Medications: Ambulatory Orders Clopidogrel Bisulfate [Plavix] 75 mg PO DAILY 09/02/14 Escitalopram [Lexapro] 10 mg PO DAILY 09/02/14 Metformin HCl [Glucophage] 1,000 mg PO BID 09/02/14 Aspirin [Aspirin Adult Low Dose] 81 mg PO DAILY 08/31/19 Atorvastatin Calcium [Lipitor] 40 mg PO DAILY 08/31/19 Clonidine HCl [Clonidine Hydrochloride] 0.2 mg PO TID 08/31/19 Nebivolol HCl [Bystolic] 20 mg PO BID 08/31/19 Valsartan-Hydrochlorothiazide [Valsartan/Hydrochlorothia 320-25 mg] 1 tablet PO DAILY 08/31/19 Bumetanide 2 mg PO DAILY 05/14/20 Ferrous Sulfate [Ferosul] 325 mg PO DAILY 05/14/20 Sulfamethoxazole-Trimethoprim [Bactrim Ds 800-160 mg] 1 tab PO BID 05/14/20 Transfer to Outside Facility - Transfer Information Decision to Transfer Date: 05/14/20 Decision to Transfer Time: 13:59 Reason for Transfer: required specialist not available - Nephrology Accepting Facility: [facility]
--- NOTE | 2020-05-14 13:00 | CT ---
EXAM DESCRIPTION: CT-Head CLINICAL HISTORY: AMS COMPARISON: None available TECHNIQUE: Multiple axial images of the head without contrast. Multiplanar reformatted images. This exam was performed according to our departmental dose-optimization program, which includes automated exposure control, adjustment of the mA and/or kV according to patient size and/or use of iterative reconstruction technique. FINDINGS: Image quality moderately degraded by motion artifact, which limits evaluation. No definite CT evidence of hemorrhage, mass effect, or large territory infarction. Moderate generalized volume loss. Moderate patchy supratentorial white matter hypodensities. 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 There are no abnormal extra-axial fluid collections. Calcific plaque in the visualized arteries. There is no acute calvarial defect. The visualized paranasal sinuses and the mastoids are clear. IMPRESSION: 1. Motion limited exam, but no definitive CT evidence of hemorrhage, mass effect, or large territory infarction. If there is concern for an acute or subacute infarct, consider follow-up MRI. 2. Small lacunar infarct in the right caudate nucleus which is likely remote but technically age indeterminate. 3. Senescent changes. Electronically signed by: Bert Marcano MD 05/14/2020 12:58 PM CDT
--- NOTE | 2020-05-14 13:04 | RAD ---
EXAM DESCRIPTION: Chest,1 View CLINICAL HISTORY: AMS COMPARISON: December 29, 2013 IMPRESSION: Single AP portable upright view of the chest shows enlargement of the cardiomediastinal silhouette with mild pulmonary vascular congestion. Lungs are hypoaerated with prominent increased interstitial markings in the perihilar regions. No obvious pleural effusion or pneumothorax is seen Electronically signed by: Octaviano Reddy MD 05/14/2020 1:03 PM CDT
[2020-05-14] MEDS ORDERED: MEROPENEM 1 GM in SODIUM CHL 0.9% 50ML MIN-BAG+ 50 ML IVPB ONE (13:44)
[2020-05-14 14:03] VITALS: TEMP 96.7
[2020-05-14 15:16] VITALS: BP 99/62; O2SAT 93
== END 2020-05-14 14:59 | disposition short-term general hospital (02) ==
LOC: ER 12:13
DX: N17.9 Acute kidney failure, unspecified (principal); L03.115 Cellulitis of right lower limb; E87.2 Acidosis; E87.70 Fluid overload, unspecified; D64.9 Anemia, unspecified; R41.82 Altered mental status, unspecified; R00.1 Bradycardia, unspecified; I11.0 Hypertensive heart disease with heart failure; I50.9 Heart failure, unspecified; Z95.5 Presence of coronary angioplasty implant and graft; F17.200 Nicotine dependence, unspecified, uncomplicated
CPT/HCPCS: 36415; 70450; 71045; 80053; 81001; 83605; 83880; 84484; 85025; 87040; 93005; J2185; J7050

== ENCOUNTER → 2020-06-17 | Outpatient (CLI) | payer MEDICARE | LOC: LAB.O 12:19 | PROVIDERS: ATTEND Family Medicine | DX: E11.9 Type 2 diabetes mellitus without complications (principal); I50.9 Heart failure, unspecified; D64.9 Anemia, unspecified; I25.10 Atherosclerotic heart disease of native coronary artery without angina pectoris ==

== ENCOUNTER → 2020-08-07 | Outpatient (CLI) | payer MEDICARE | LOC: LAB.NP 10:39 | PROVIDERS: ATTEND Family Medicine | DX: I13.0 Hypertensive heart and chronic kidney disease with heart failure and stage 1 through stage 4 chronic kidney disease, or unspecified chronic kidney disease (principal); D63.1 Anemia in chronic kidney disease; N18.9 Chronic kidney disease, unspecified; M81.0 Age-related osteoporosis without current pathological fracture ==